=== PATIENT | male | born 1965 | race Caucasian/White ===

== ENCOUNTER 2017-08-01 06:49 | Day surgery (SDC) | payer OTHER ==
[~2017-08-01] VITALS: Ht 188 cm; Wt 114.8 kg
[~2017-08-01 06:49] MED LIST: NO HOME MEDICATIONS
[2017-08-01 06:56] VITALS: BP 135/86; PULSE 87; TEMP 97.3
[2017-08-01] MEDS ORDERED: LEVOXYL0.025 MG PO (07:35)
[2017-08-01] MEDS ORDERED: ZESTRIL 10MG10 MG PO (07:35)
[2017-08-01] MEDS ORDERED: VITAMIN D 1001000 IU PO (07:36)
[2017-08-01] MEDS ORDERED: PAZEO2.5 ML OP (07:37)
[2017-08-01 08:44] VITALS: BP 120/70; PULSE 16; TEMP 97.8
[2017-08-01 09:00] VITALS: BP 115/72; PULSE 16
[2017-08-01 09:15] VITALS: BP 122/78; PULSE 72
== END 2017-08-01 09:45 | disposition home or self-care (01) ==
LOC: SDCO 06:49
DX: K63.5 Polyp of colon (principal); Z86.010 Personal history of colon polyps; K92.1 Melena; I10 Essential (primary) hypertension; E07.9 Disorder of thyroid, unspecified; E78.00 Pure hypercholesterolemia, unspecified; K64.9 Unspecified hemorrhoids
CPT/HCPCS: J2250; J3010; J7030

== ENCOUNTER 2017-10-07 17:39 | Emergency (ER) | payer BC, OTHER ==
[~2017-10-07] VITALS: Ht 188 cm; Wt 118.2 kg
[~2017-10-07 17:39] MED LIST changes: +LEVOXYL0.025 MG PO; +PAZEO2.5 ML OP; +VITAMIN D 1001000 IU PO; +ZESTRIL 10MG10 MG PO
[2017-10-07 17:42] VITALS: TEMP 97.6
[2017-10-07] MEDS ORDERED: ROBAXIN 50500 MG/TAB PO (18:07)
[2017-10-07] MEDS ORDERED: NORCO 325 MG-51 TAB PO (18:43)
[2017-10-07] MEDS ORDERED: FLEXERIL 1010 MG/TAB PO (18:43)
[2017-10-07 19:05] VITALS: BP 137/77; PULSE 90
== END 2017-10-07 19:06 | disposition home or self-care (01) ==
LOC: COL.ER 17:39
DX: M54.5 Low back pain (principal); I10 Essential (primary) hypertension; M19.90 Unspecified osteoarthritis, unspecified site